=== PATIENT | female | born 1965 | race African-American/Black ===

== ENCOUNTER 2021-10-15 19:50 | Inpatient (IN) | payer MEDICARE, MEDICAID ==
[~2021-10-15] VITALS: Ht 175.3 cm; Wt 103.0 kg
[2021-10-15 19:50] VITALS: BP 151/72
[2021-10-15 21:00] VITALS: BP 151/72
[2021-10-15] MEDS ORDERED: DOCUSATE SODIUM 100MG CAPSULE PO PRN (21:30)
[2021-10-15] MEDS ORDERED: BISACODYL 10MG SUPP PR PRN (21:30)
[2021-10-15] MEDS ORDERED: DIPHENHYDRAMINE 25MG CAPSULE PO PRN (21:30)
[2021-10-15] MEDS ORDERED: ONDANSETRON HCL 4MG TABLET PO PRN (21:46)
[2021-10-15] MEDS ORDERED: MELATONIN 3MG TABLET PO PRN (22:00)
[2021-10-15] MEDS: ATORVASTATIN CALCIUM 40MG TABLET PO SCH (22:12)
[2021-10-15] MEDS: HYDROCODONE/ACETAMINOPHEN 10/325MG TABLET PO PRN (22:13)
[2021-10-16] MEDS: PANTOPRAZOLE 40MG DR TABLET PO SCH (06:14)
[2021-10-16 06:40] LABS: BASOPHILS % 0.5 % (0.0-2.0); EOSINOPHILS % 2.4 % (0.0-5.0); HEMATOCRIT. 38.2 % (36.0-48.0); HEMOGLOBIN. 12.6 g/dL (12.0-16.0); LYMPHOCYTES % 28.7 % (20.0-50.0); MEAN CORPUSCULAR HEMOGLOBIN 29.6 pg (28.0-32.0); MEAN CORPUSCULAR VOLUME 89.7 fL (81.0-99.0); MEAN PLATELET VOLUME 9.6 fl (7.4-10.4); NEUTROPHILS % 59.4 % (40.0-76.0); PLATELET 265 x1000/uL (130-400); RED BLOOD CELL COUNT 4.26 mill/uL (4.2-5.4); RED CELL DISTRIBUTION WIDTH 13.5 % (11.6-14.6)
[2021-10-16 07:01] LABS: CHLORIDE 110 mEq/L (98-107)
[2021-10-16 07:53] VITALS: BP 154/81
[2021-10-16] MEDS ORDERED: ENOXAPARIN 40MG/0.4ML SYR SUBCUT SCH (09:00)
[2021-10-16] MEDS ORDERED: NALOXONE HCL 0.4MG/ML VIAL IV PRN (09:15)
[2021-10-16] MEDS: ASPIRIN 81MG EC TABLET PO SCH (09:44)
[2021-10-16] MEDS: ENOXAPARIN 30MG/0.3ML SYR SUBCUT SCH ×2 (09:44→22:12)
[2021-10-16] MEDS ORDERED: INFLUENZA VACCINE 05/PF 0.5 ML SYRINGE IM ONE (12:00)
[2021-10-16] MEDS ORDERED: POTASSIUM CHLORIDE 20MEQ TABLET SR PO NR (13:00)
[2021-10-16] MEDS: DOCUSATE SODIUM 100MG CAPSULE PO SCH ×2 (16:09→18:34)
[2021-10-16] MEDS: HYDROCODONE/ACETAMINOPHEN 10/325MG TABLET PO PRN ×2 (16:09→22:26)
[2021-10-16 20:00] VITALS: BP 140/71
[2021-10-16] MEDS ORDERED: ATORVASTATIN CALCIUM 40MG TABLET PO SCH (21:00)
[2021-10-16] MEDS: AMLODIPINE 5MG TABLET PO SCH (22:12)
[2021-10-16] MEDS: ATORVASTATIN CALCIUM 40MG TABLET PO SCH (22:13)
[2021-10-17] MEDS: PANTOPRAZOLE 40MG DR TABLET PO SCH (07:08)
[2021-10-17 08:00] VITALS: BP 167/91
[2021-10-17] MEDS: DOCUSATE SODIUM 100MG CAPSULE PO SCH ×2 (09:19→16:56)
[2021-10-17] MEDS: CLOPIDOGREL 75MG TABLET PO SCH (09:20)
[2021-10-17] MEDS: AMLODIPINE 5MG TABLET PO SCH (09:20)
[2021-10-17] MEDS: ASPIRIN 81MG EC TABLET PO SCH (09:20)
[2021-10-17] MEDS: ENOXAPARIN 30MG/0.3ML SYR SUBCUT SCH ×2 (09:23→20:50)
[2021-10-17] MEDS: LACTULOSE 20G/30ML UDC PO SCH ×2 (13:30→18:00)
[2021-10-17] MEDS: HYDROCODONE/ACETAMINOPHEN 10/325MG TABLET PO PRN ×2 (14:46→20:57)
[2021-10-17 20:00] VITALS: BP 151/71
[2021-10-18] MEDS: AMLODIPINE 5MG TABLET PO SCH ×3 (00:22→22:09)
[2021-10-18] MEDS: LACTULOSE 20G/30ML UDC PO SCH (00:22)
[2021-10-18] MEDS: ATORVASTATIN CALCIUM 40MG TABLET PO SCH ×2 (00:35→22:09)
[2021-10-18] MEDS: FAMOTIDINE 20MG TABLET PO SCH ×3 (00:35→22:10)
[2021-10-18] MEDS: HYDROCODONE/ACETAMINOPHEN 10/325MG TABLET PO PRN ×4 (08:46→23:37)
[2021-10-18] MEDS: CLOPIDOGREL 75MG TABLET PO SCH (08:47)
[2021-10-18] MEDS: DOCUSATE SODIUM 100MG CAPSULE PO SCH ×2 (08:47→16:46)
[2021-10-18] MEDS: ASPIRIN 81MG EC TABLET PO SCH (08:47)
[2021-10-18] MEDS: ENOXAPARIN 30MG/0.3ML SYR SUBCUT SCH ×2 (08:48→22:09)
[2021-10-18] MEDS: HYDRALAZINE HCL 10MG TABLET PO SCH ×2 (13:10→22:10)
[2021-10-18 20:00] VITALS: BP 150/72
[2021-10-19] MEDS: HYDRALAZINE HCL 10MG TABLET PO SCH ×3 (06:43→21:27)
[2021-10-19] MEDS: HYDROCODONE/ACETAMINOPHEN 10/325MG TABLET PO PRN ×4 (06:47→23:55)
[2021-10-19 08:00] VITALS: BP 131/55
[2021-10-19] MEDS: FAMOTIDINE 20MG TABLET PO SCH ×2 (10:32→21:25)
[2021-10-19] MEDS: DOCUSATE SODIUM 100MG CAPSULE PO SCH ×2 (10:32→16:02)
[2021-10-19] MEDS: ASPIRIN 81MG EC TABLET PO SCH (10:32)
[2021-10-19] MEDS: AMLODIPINE 5MG TABLET PO SCH ×2 (10:33→21:25)
[2021-10-19] MEDS: CLOPIDOGREL 75MG TABLET PO SCH (10:33)
[2021-10-19] MEDS: ENOXAPARIN 30MG/0.3ML SYR SUBCUT SCH ×2 (10:33→21:29)
[2021-10-19 20:00] VITALS: BP 142/65
[2021-10-19] MEDS: ATORVASTATIN CALCIUM 40MG TABLET PO SCH (21:23)
[2021-10-20] MEDS: HYDRALAZINE HCL 10MG TABLET PO SCH (06:13)
[2021-10-20 08:00] VITALS: BP 160/85
[2021-10-20] MEDS: FAMOTIDINE 20MG TABLET PO SCH ×2 (09:53→21:41)
[2021-10-20] MEDS: HYDROCODONE/ACETAMINOPHEN 10/325MG TABLET PO PRN ×3 (09:53→22:07)
[2021-10-20] MEDS: ASPIRIN 81MG EC TABLET PO SCH (09:54)
[2021-10-20] MEDS: AMLODIPINE 5MG TABLET PO SCH ×2 (09:54→21:41)
[2021-10-20] MEDS: DOCUSATE SODIUM 100MG CAPSULE PO SCH ×2 (09:54→19:02)
[2021-10-20] MEDS: CLOPIDOGREL 75MG TABLET PO SCH (09:54)
[2021-10-20] MEDS: ENOXAPARIN 30MG/0.3ML SYR SUBCUT SCH ×2 (09:55→21:42)
[2021-10-20] MEDS: CLONIDINE 0.1MG TABLET PO PRN (10:35)
[2021-10-20] MEDS: HYDRALAZINE HCL 50MG TABLET PO SCH ×2 (13:43→21:41)
[2021-10-20 20:00] VITALS: BP 127/74
[2021-10-20] MEDS: ATORVASTATIN CALCIUM 40MG TABLET PO SCH (21:41)
[2021-10-20] MEDS ORDERED: NALOXONE HCL 0.4MG/ML VIAL IV PRN (22:15)
[2021-10-21] MEDS: HYDRALAZINE HCL 50MG TABLET PO SCH ×3 (05:28→21:03)
[2021-10-21] MEDS: ENOXAPARIN 30MG/0.3ML SYR SUBCUT SCH ×2 (09:16→21:02)
[2021-10-21] MEDS: ASPIRIN 81MG EC TABLET PO SCH (09:16)
[2021-10-21] MEDS: HYDROCODONE/ACETAMINOPHEN 10/325MG TABLET PO PRN ×3 (09:17→21:55)
[2021-10-21] MEDS: AMLODIPINE 5MG TABLET PO SCH ×2 (09:18→21:04)
[2021-10-21] MEDS: DOCUSATE SODIUM 100MG CAPSULE PO SCH ×2 (09:18→17:10)
[2021-10-21] MEDS: CLOPIDOGREL 75MG TABLET PO SCH (09:18)
[2021-10-21] MEDS: FAMOTIDINE 20MG TABLET PO SCH ×2 (09:18→21:02)
[2021-10-21 20:00] VITALS: BP 141/80
[2021-10-21] MEDS: ATORVASTATIN CALCIUM 40MG TABLET PO SCH (21:02)
[2021-10-22] MEDS: HYDRALAZINE HCL 50MG TABLET PO SCH ×3 (05:53→21:44)
[2021-10-22 08:00] VITALS: BP 145/78
[2021-10-22] MEDS: DOCUSATE SODIUM 100MG CAPSULE PO SCH ×2 (10:19→18:28)
[2021-10-22] MEDS: CLOPIDOGREL 75MG TABLET PO SCH (10:19)
[2021-10-22] MEDS: ASPIRIN 81MG EC TABLET PO SCH (10:20)
[2021-10-22] MEDS: AMLODIPINE 5MG TABLET PO SCH ×2 (10:20→20:21)
[2021-10-22] MEDS: FAMOTIDINE 20MG TABLET PO SCH ×2 (10:20→20:21)
[2021-10-22] MEDS: ENOXAPARIN 30MG/0.3ML SYR SUBCUT SCH ×2 (10:21→20:21)
[2021-10-22] MEDS: HYDROCODONE/ACETAMINOPHEN 10/325MG TABLET PO PRN ×3 (10:21→21:43)
[2021-10-22 16:07] LABS: BASOPHILS % 0.4 % (0.0-2.0); EOSINOPHILS % 1.2 % (0.0-5.0); HEMATOCRIT. 39.8 % (36.0-48.0); HEMOGLOBIN. 13.3 g/dL (12.0-16.0); LYMPHOCYTES % 26.1 % (20.0-50.0); MEAN CORPUSCULAR HEMOGLOBIN 30.2 pg (28.0-32.0); MEAN CORPUSCULAR VOLUME 90.2 fL (81.0-99.0); MEAN PLATELET VOLUME 9.3 fl (7.4-10.4); MONOCYTES % 9.4 % (2.0-8.0); NEUTROPHILS % 62.9 % (40.0-76.0); PLATELET 285 x1000/uL (130-400); RED BLOOD CELL COUNT 4.41 mill/uL (4.2-5.4); RED CELL DISTRIBUTION WIDTH 13.7 % (11.6-14.6)
[2021-10-22 16:09] LABS: CHLORIDE 110 mEq/L (98-107)
[2021-10-22 20:07] VITALS: BP 139/72
[2021-10-22] MEDS: ATORVASTATIN CALCIUM 40MG TABLET PO SCH (20:21)
[2021-10-23] MEDS: HYDRALAZINE HCL 50MG TABLET PO SCH ×3 (05:04→22:30)
[2021-10-23 08:00] VITALS: BP 132/79
[2021-10-23] MEDS: DOCUSATE SODIUM 100MG CAPSULE PO SCH ×2 (09:11→17:09)
[2021-10-23] MEDS: ENOXAPARIN 30MG/0.3ML SYR SUBCUT SCH ×2 (09:11→22:29)
[2021-10-23] MEDS: CLOPIDOGREL 75MG TABLET PO SCH (09:12)
[2021-10-23] MEDS: ASPIRIN 81MG EC TABLET PO SCH (09:12)
[2021-10-23] MEDS: FAMOTIDINE 20MG TABLET PO SCH ×2 (09:12→22:31)
[2021-10-23] MEDS: AMLODIPINE 5MG TABLET PO SCH ×2 (09:12→22:31)
[2021-10-23] MEDS: HYDROCODONE/ACETAMINOPHEN 10/325MG TABLET PO PRN ×3 (09:13→22:39)
[2021-10-23] MEDS: ACETAMINOPHEN 325MG TABLET PO PRN (12:15)
[2021-10-23 20:16] VITALS: BP 159/75
[2021-10-23] MEDS: ATORVASTATIN CALCIUM 40MG TABLET PO SCH (22:31)
[2021-10-23] MEDS: SERTRALINE HCL 25MG TABLET PO SCH (22:31)
[2021-10-24] MEDS: HYDRALAZINE HCL 50MG TABLET PO SCH ×3 (06:38→20:57)
[2021-10-24] MEDS: FAMOTIDINE 20MG TABLET PO SCH ×2 (06:38→20:56)
[2021-10-24] MEDS: HYDROCODONE/ACETAMINOPHEN 10/325MG TABLET PO PRN ×4 (06:39→20:56)
[2021-10-24 08:00] VITALS: BP 131/75
[2021-10-24] MEDS: ENOXAPARIN 30MG/0.3ML SYR SUBCUT SCH ×2 (09:08→20:58)
[2021-10-24] MEDS: AMLODIPINE 5MG TABLET PO SCH ×2 (09:09→20:57)
[2021-10-24] MEDS: SERTRALINE HCL 25MG TABLET PO SCH (09:09)
[2021-10-24] MEDS: ASPIRIN 81MG EC TABLET PO SCH (09:09)
[2021-10-24] MEDS: CLOPIDOGREL 75MG TABLET PO SCH (09:09)
[2021-10-24] MEDS: DOCUSATE SODIUM 100MG CAPSULE PO SCH ×2 (09:11→18:14)
[2021-10-24] MEDS: CLONIDINE 0.1MG TABLET PO PRN (18:14)
[2021-10-24] MEDS: ATORVASTATIN CALCIUM 40MG TABLET PO SCH (20:56)
[2021-10-24 23:19] VITALS: BP 124/68
[2021-10-25] MEDS: HYDRALAZINE HCL 50MG TABLET PO SCH ×3 (05:57→20:28)
[2021-10-25] MEDS: HYDROCODONE/ACETAMINOPHEN 10/325MG TABLET PO PRN ×3 (05:59→20:28)
[2021-10-25 07:58] VITALS: BP 144/76
[2021-10-25] MEDS: FAMOTIDINE 20MG TABLET PO SCH ×2 (08:16→20:29)
[2021-10-25] MEDS: CLOPIDOGREL 75MG TABLET PO SCH (08:16)
[2021-10-25] MEDS: ASPIRIN 81MG EC TABLET PO SCH (08:16)
[2021-10-25] MEDS: SERTRALINE HCL 25MG TABLET PO SCH (08:16)
[2021-10-25] MEDS: DOCUSATE SODIUM 100MG CAPSULE PO SCH ×2 (08:16→16:58)
[2021-10-25] MEDS: ENOXAPARIN 30MG/0.3ML SYR SUBCUT SCH ×2 (08:16→20:29)
[2021-10-25] MEDS: AMLODIPINE 5MG TABLET PO SCH ×2 (08:16→20:29)
[2021-10-25 20:00] VITALS: BP 141/84
[2021-10-25] MEDS: ATORVASTATIN CALCIUM 40MG TABLET PO SCH (20:28)
[2021-10-26] MEDS ORDERED: HYDROCODONE/ACETAMINOPHEN 10/325MG TABLET PO PRN (05:45)
[2021-10-26] MEDS: HYDRALAZINE HCL 50MG TABLET PO SCH ×3 (05:51→21:21)
[2021-10-26 07:50] VITALS: BP 150/79
[2021-10-26] MEDS: CLOPIDOGREL 75MG TABLET PO SCH (08:54)
[2021-10-26] MEDS: ENOXAPARIN 30MG/0.3ML SYR SUBCUT SCH ×2 (08:54→21:00)
[2021-10-26] MEDS: FAMOTIDINE 20MG TABLET PO SCH ×2 (08:55→21:20)
[2021-10-26] MEDS: AMLODIPINE 5MG TABLET PO SCH ×2 (08:55→21:20)
[2021-10-26] MEDS: SERTRALINE HCL 25MG TABLET PO SCH (08:55)
[2021-10-26] MEDS: DOCUSATE SODIUM 100MG CAPSULE PO SCH ×2 (08:55→17:55)
[2021-10-26] MEDS: ACETAMINOPHEN 325MG TABLET PO PRN (08:56)
[2021-10-26] MEDS: ASPIRIN 81MG EC TABLET PO SCH (12:05)
[2021-10-26] MEDS: HYDROCODONE/ACETAMINOPHEN 10/325MG TABLET PO PRN ×2 (12:21→18:27)
[2021-10-26 20:00] VITALS: BP 129/75
[2021-10-26] MEDS: ATORVASTATIN CALCIUM 40MG TABLET PO SCH (21:20)
[2021-10-27] MEDS: HYDROCODONE/ACETAMINOPHEN 10/325MG TABLET PO PRN ×2 (00:57→07:11)
[2021-10-27] MEDS: HYDRALAZINE HCL 50MG TABLET PO SCH (07:12)
[2021-10-27 07:15] LABS: PARTIAL THROMBOPLASTIN TIME 26.4 sec (23.4-31.0); PROTHROMBIN TIME 10.8 sec (9.6-11.0)
[2021-10-27 08:00] VITALS: BP 144/71
[2021-10-27] MEDS: ASPIRIN 81MG EC TABLET PO SCH (08:11)
[2021-10-27] MEDS: DOCUSATE SODIUM 100MG CAPSULE PO SCH (08:11)
[2021-10-27] MEDS: SERTRALINE HCL 25MG TABLET PO SCH (08:12)
[2021-10-27] MEDS: AMLODIPINE 5MG TABLET PO SCH (08:12)
[2021-10-27] MEDS: FAMOTIDINE 20MG TABLET PO SCH (08:12)
[2021-10-27] MEDS: CLOPIDOGREL 75MG TABLET PO SCH (08:12)
[2021-10-27] MEDS: ENOXAPARIN 30MG/0.3ML SYR SUBCUT SCH (08:13)
[2021-10-27 11:34] VITALS: BP 144/71
== END 2021-10-27 11:55 | disposition home health service (06) | DRG 65 ==
PROVIDERS: ADMIT Psychiatry & Neurology Neurology; ATTEND Hospitalist
DX: I63.512 Cerebral infarction due to unspecified occlusion or stenosis of left middle cerebral artery (principal); M62.82 Rhabdomyolysis; N39.0 Urinary tract infection, site not specified; G81.91 Hemiplegia, unspecified affecting right dominant side; E78.5 Hyperlipidemia, unspecified; R47.01 Aphasia; E87.6 Hypokalemia; F01.50 Vascular dementia, unspecified severity, without behavioral disturbance, psychotic disturbance, mood disturbance, and anxiety; F39 Unspecified mood [affective] disorder; I11.9 Hypertensive heart disease without heart failure; E66.01 Morbid (severe) obesity due to excess calories; Z96.653 Presence of artificial knee joint, bilateral; R41.89 Other symptoms and signs involving cognitive functions and awareness; R13.10 Dysphagia, unspecified; Z56.0 Unemployment, unspecified; Z68.33 Body mass index [BMI] 33.0-33.9, adult; F06.34 Mood disorder due to known physiological condition with mixed features
CPT/HCPCS: 36415; 80053; 85025; 92523; 92610; 93970; 97110; 97112; 97116; 97150; 97162; 97166; 97530; 97535; A4565; J1650